=== PATIENT | male | born 1945 | race Caucasian/White ===

== ENCOUNTER 2018-09-27 10:08 | Inpatient (IN) ==
[2018-09-27] MEDS ORDERED: Ipratropium/Albuterol Neb 3 ML IH ONE (10:33)
[2018-09-27] MEDS ORDERED: 0.9 % Sodium Chloride 1,000 ML IVC ONE (10:33)
[2018-09-27] MEDS ORDERED: Acetaminophen 325 MG TABLET PO ONE (10:34)
[2018-09-27] MEDS ORDERED: methylPREDNISolone 125 MG/2 ML VIAL IM STA (10:35)
--- NOTE | 2018-09-27 10:38 | Emergency Department Note ---
Disposition Clinical Impression: Multifocal pneumonia COPD (chronic obstructive pulmonary disease) Qualifiers: COPD type: COPD with acute lower respiratory infection Qualified Code(s): J44.0 - Chronic obstructive pulmonary disease with acute lower respiratory infection Disposition: Admitted As Inpatient Condition: Fair Referrals: Chacha Rosenthal CNP [Primary Care Provider] - Forms: ED Satisfaction Letter SOB HPI - General Chief Complaint: ED Shortness of Breath/Dyspnea Stated Complaint: possible pneumonia Time Seen by Provider: 09/27/18 10:20 Source: patient Mode of arrival: private vehicle Limitations: no limitations Nursing Notes Reviewed: Yes Vital Signs Reviewed: Yes - History of Present Illness Patient presents to the ED with complaint of shortness of breath and cough with concern for possible pneumonia. He apparently saw his pain management doctor yesterday who thought he may have pneumonia and advised to come in for further evaluation. He reports symptoms started yesterday. Cough is been dry with occasional production of clear phlegm. He denies any nasal congestion but does report chronic clear rhinorrhea. No sore throat. Denies any fever or chills. Denies any chest pain but does report "lung pain" on the right side whenever he coughs. No nausea, vomiting, diarrhea or constipation. He wears 2-3 L of oxygen at home at all times due to his COPD but does continue to smoke 5-6 cigarettes per day. States he is not on any inhalers for his COPD and never has been because he cannot afford them. Denies any recent travel or sick contacts. Denies any leg swelling. Denies any cardiac history but does have diabetes, high blood pressure and high cholesterol. He has increased his oxygen level at home at 4 L without improvement. - Related Data Home Medications Medication Instructions Recorded Confirmed Gemfibrozil [Lopid] 600 mg PO BIDWM 02/18/15 09/27/18 Hydrochlorothiazide 25 mg PO DAILY 02/18/15 09/27/18 Lisinopril [Zestril] 20 mg PO DAILY 02/18/15 09/27/18 glipiZIDE [Glucotrol] 5 mg PO DAILY 02/18/15 09/27/18 metFORMIN [Glucophage] 1,000 mg PO BIDWM 02/18/15 09/27/18 Gabapentin [Neurontin] 800 mg PO QID PRN 04/27/15 09/27/18 Tizanidine HCl 4 mg PO TID PRN 07/19/16 03/20/19 OxyCODONE Immed Rel [Roxicodone 20 20 mg PO Q6H PRN 01/28/16 09/27/18 MG] Albuterol Sulfate 2.5 mg IH Q4HR 08/27/16 09/27/18 Aspirin 81 mg PO DAILY 08/27/16 09/27/18 Previous Rx's Medication Instructions Recorded Nicotine Patch [Nicoderm] 14 mg TD DAILY #30 patch.td24 05/06/17 predniSONE [PredniSONE] 10 mg PO DAILY #63 tablet 05/06/17 Sucralfate [Carafate] 1 gm PO 2-4XD #200 mls 02/10/18 Ondansetron ODT [Zofran ODT] 4 mg SL Q4HR PRN #10 tab.rapdis 04/05/18 Allergies Allergy/AdvReac Type Severity Reaction Status Date / Time No Known Allergies Allergy Verified 09/27/18 10:24 Constitutional: Denies: fever, chills, weakness, weight change Eyes: Denies: eye pain, eye discharge, vision change ENT ED: Denies: ear pain, throat pain, dental pain, hearing loss, epistaxis, congestion, dysphagia Cardiovascular: Denies: chest pain, palpitations, dyspnea on exertion, edema, syncope Respiratory: Reports: cough, dyspnea. Denies: wheezes, hemoptysis, stridor Gastrointestinal: Denies: abdominal pain, nausea, vomiting, diarrhea, constipation, hematemesis, melena, hematochezia Genitourinary: Denies: urgency, dysuria, frequency, hematuria Musculoskeletal: Denies: back pain, neck pain, arthralgia, myalgia Integumentary: Denies: rash, abrasion, lesions Neurological: Denies: headache, weakness, numbness, paresthesias, confusion, abnormal gait, vertigo Psychiatric: Denies: anxiety, depression, suicidal thoughts, homicidal thoughts, auditory hallucinations, visual hallucinations Endocrine: Denies: fatigue Hematological/Lymphatic: Denies: easy bleeding, easy bruising Allergic/Immunologic: Denies: facial swelling, urticaria Past Medical History - Past Medical History Medical history: Reports: arthritis, COPD, diabetes, hyperlipidemia, hypertension, venous stasis, other Psychiatric history: Reports: no psych history - Social History Smoking Status: Current every day smoker Smokeless Tobacco Status: No Alcohol use: Reports: none Drug use: Reports: none Physical Exam - General Limitations: no limitations General appearance: alert, in no apparent distress - Head Head exam: atraumatic, normocephalic, normal inspection - Eye Eye exam: Present: normal appearance, PERRL, EOMI - ENT ENT exam: normal exam, normal oropharynx, mucous membranes moist - Neck Neck exam: Present: normal inspection, full ROM, trachea midline - Chest Chest inspection: Present: normal inspection, symmetric chest wall rise - Respiratory Respiratory exam: Absent: respiratory distress - Expanded Respiratory Exam Location: rhonchi: Left, Right, Upper, Lower (scattered), decreased breath sounds: Left, Right, Upper, Lower - Cardiovascular Cardiovascular exam: Present: normal rhythm, tachycardia, normal heart sounds - Abdominal Exam Abdominal exam: Present: soft, Non-Tender, normal bowel sounds. Absent: tenderness, distention, guarding, rebound, rigidity - Extremities Exam Extremities exam: Present: normal inspection, full ROM. Absent: tenderness, pedal edema - Neurological Exam Neurological exam: Present: alert, oriented X3 - Psychiatric Psychiatric exam: Present: normal affect, normal mood - Skin Skin exam: Present: warm, dry, intact, normal color Course Course Narrative: Agent presents to the ED at 2 days of shortness of breath, cough and right-sided pleuritic chest pain. On arrival he is hypoxic on 4 L and tachycardic with a low-grade fever concerning for pneumonia versus influenza. Will check flu swab, chest x-ray and lab work. We will give IV fluids as well as Tylenol for fever in addition to a breathing treatment and steroids for his COPD. - Reevaluation(s) Reevaluation #1: Lab work shows a leukocytosis swelled is a mildly elevated lactic acid and a bump in his troponin all related likely to the multifocal pneumonia seen on chest x-ray. Patient will be started on antibiotics. IV fluids have Adin been initiated along with Tylenol. He is requested oxycodone for his chronic pain which will be given. Discussed with patient his pneumonia as well as COPD exacerbation and need for admission and he is in agreement. I then spoke to his primary care provider's office, Dr. Salazar who has agreed to accept the patient. Time: 12:20 Vital Signs Temperature 100.8 F H 09/27/18 10:19 Pulse Rate 121 03/20/19 10:19 Respiratory Rate 28 09/27/18 10:19 Blood Pressure 144/117 09/27/18 10:19 O2 Sat by Pulse Oximetry 89 09/27/18 10:19 Temperature 100.8 F H 09/27/18 10:19 Pulse Rate 107 09/27/18 12:00 Respiratory Rate 20 09/27/18 12:00 Blood Pressure 103/66 09/27/18 12:00 O2 Sat by Pulse Oximetry 90 09/27/18 12:00 Oxygen Delivery Oxygen Delivery Nasal Cannula Shortness of Breath/Dyspnea - Differential Diagnosis Likely: acute exacerbation of chronic obstructive airways disease, pneumonia (versus influenza) - Medical Records Medical records reviewed: Yes I reviewed the patient's medical records. - Lab Data Lab results reviewed: Yes I reviewed the patient's lab results. Result diagrams: 09/27/18 10:45 09/27/18 10:45 Lab Results 09/27/18 09/27/18 09/27/18 Range/Units 10:45 10:45 10:45 WBC 16.6 H (4.3-11.1) K/mcL RBC 5.26 (4.19-5.50) M/mcL Hgb 13.7 (12.9-16.9) g/dL Hct 43.7 (37.5-50.1) % MCV 83.1 (83.0-100.0) fL MCH 26.0 L (28.0-33.3) pg MCHC 31.4 L (31.6-35.5) g/dL RDW 18.3 H (11.5-14.5) % Plt Count 265 (140-400) K/mcL MPV 10.4 (9.4-12.4) fL Immature Gran % 0.7 (0-4) % Seg Neutrophils % 88.6 % Lymphocytes % 5.4 % Monocytes % 5.1 % Eosinophils % 0.0 % Basophils % 0.2 % Neutrophils # 14.7 H (1.6-8.9) K/mcL Lymphocytes # 0.9 (0.6-4.6) K/mcL Monocytes # 0.9 (0.0-1.3) K/mcL Eosinophils # 0.0 (0.0-0.6) K/mcL Basophils # 0.0 (0.0-0.2) K/mcL Sodium 134 L (136-145) mEq/L Potassium 3.9 (3.5-5.1) mEq/L Chloride 94 L (98-107) mEq/L Carbon Dioxide 29 (23-29) mEq/L BUN 27 H (8-23) mg/dL Creatinine 1.41 H (0.70-1.30) mg/dL Est GFR ( Amer) 60 (> 60) Est GFR (Non-Af Amer) 49 L (> 60) BUN/Creatinine Ratio 19 (6-26) Glucose 203 H (70-105) mg/dL Calculated Osmolality 289 (280-300) Lactic Acid 2.4 H (0.5-2.2) mmol/L Calcium 9.3 (8.6-10.3) mg/dL Troponin I 0.05 H* (< 0.04) ng/mL B-Natriuretic Peptide (Less than 100) pg/mL 09/27/18 Range/Units 10:45 WBC (4.3-11.1) K/mcL RBC (4.19-5.50) M/mcL Hgb (12.9-16.9) g/dL Hct (37.5-50.1) % MCV (83.0-100.0) fL MCH (28.0-33.3) pg MCHC (31.6-35.5) g/dL RDW (11.5-14.5) % Plt Count (140-400) K/mcL MPV (9.4-12.4) fL Immature Gran % (0-4) % Seg Neutrophils % % Lymphocytes % % Monocytes % % Eosinophils % % Basophils % % Neutrophils # (1.6-8.9) K/mcL Lymphocytes # (0.6-4.6) K/mcL Monocytes # (0.0-1.3) K/mcL Eosinophils # (0.0-0.6) K/mcL Basophils # (0.0-0.2) K/mcL Sodium (136-145) mEq/L Potassium (3.5-5.1) mEq/L Chloride (98-107) mEq/L Carbon Dioxide (23-29) mEq/L BUN (8-23) mg/dL Creatinine (0.70-1.30) mg/dL Est GFR ( Amer) (> 60) Est GFR (Non-Af Amer) (> 60) BUN/Creatinine Ratio (6-26) Glucose (70-105) mg/dL Calculated Osmolality (280-300) Lactic Acid (0.5-2.2) mmol/L Calcium (8.6-10.3) mg/dL Troponin I (< 0.04) ng/mL B-Natriuretic Peptide 115 H (Less than 100) pg/mL - Radiology Data Radiology results reviewed: Yes I reviewed the patient's radiology results. ITS Impressions Chest X-Ray 09/27/18 10:33 IMPRESSION: Multifocal pneumonia, primarily in the right lung. Radiographic follow-up to document resolution is recommended. D/ / Felix Jeronimo MD / Felix Jeronimo MD Interpreting Provider: Felix Jeronimo MD - EKG Data EKG attestation: Yes I reviewed and interpreted this EKG. EKG shows normal: Reports: sinus rhythm Rate: Reports: tachycardia Rhythm: Reports: NSR, PAC's [place]/QRS: Reports: normal P waves: Reports: LAE Interpretation: Reports: no acute changes, nonspecific ST-T wave changes
[2018-09-27 10:59] LABS: Basophils % 0.2 %; Hematocrit 43.7 % (37.5-50.1); Hemoglobin 13.7 g/dL (12.9-16.9); Immature Granulocytes % 0.7 % (0-4); Lymphocytes # 0.9 K/mcL (0.6-4.6); Lymphocytes % 5.4 %; Mean Corpuscular HGB Conc 31.4 g/dL (31.6-35.5); Mean Corpuscular Volume 83.1 fL (83.0-100.0); Mean Platelet Volume 10.4 fL (9.4-12.4); Monocytes # 0.9 K/mcL (0.0-1.3); Monocytes % 5.1 %; Neutrophils # 14.7 K/mcL (1.6-8.9); Platelet Count 265 K/mcL (140-400); Red Blood Count 5.26 M/mcL (4.19-5.50); Red Cell Distribution Width 18.3 % (11.5-14.5); Segmented Neutrophils % 88.6 %
[2018-09-27 11:16] LABS: Calcium 9.3 mg/dL (8.6-10.3); Potassium 3.9 mEq/L (3.5-5.1)
[2018-09-27 11:19] LABS: Troponin I 0.05 ng/mL (< 0.04)
[2018-09-27] MEDS ORDERED: cefTRIAXone 1,000 MG in 0.9 % Sodium Chloride Mini Bag 100 ML IVPB ONE (11:40)
[2018-09-27] MEDS ORDERED: Levofloxacin 750 MG/150 ML 750 MG/150 ML BAG IVPB ONE (11:40)
[2018-09-27] MEDS ORDERED: *HR* OxyCODONE Immed Rel 5 MG TABLET PO ONE (11:54)
[2018-09-27] MEDS ORDERED: Naloxone 0.4 MG/ML INJ IVP PRN ×2 (12:22→13:35)
[2018-09-27] MEDS ORDERED: 0.9 % Sodium Chloride 1,000 ML IVC SCH (12:30)
[2018-09-27] MEDS ORDERED: Ipratropium/Albuterol Neb 3 ML IH SCH ×2 (12:30→13:00)
[2018-09-27] MEDS ORDERED: Ipratropium Neb 0.5 MG NEBULIZER ONE ×2 (12:35→13:35)
[2018-09-27] MEDS ORDERED: Gabapentin 400 MG CAPSULE PO PRN (13:35)
[2018-09-27] MEDS ORDERED: Ondansetron ODT 4 MG TAB.RAPDIS SL PRN (13:35)
[2018-09-27] MEDS ORDERED: *HR* OxyCODONE Immed Rel 5 MG TABLET PO PRN (13:35)
[2018-09-27] MEDS ORDERED: tiZANidine 4 MG TABLET PO PRN (13:35)
[2018-09-27] MEDS: Albuterol 2.5 MG/3 ML NEBULIZER IH SCH ×2 (15:32→19:41)
[2018-09-27] MEDS: Ipratropium/Albuterol Neb 3 ML IH SCH ×2 (15:33→19:41)
[2018-09-27] MEDS ORDERED: *HR* Dextrose 50 % in Water (Syg) 50 ML SYRINGE IVP PRN (16:16)
[2018-09-27] MEDS ORDERED: Dextrose Gel 15 GM/37.5 ML TUBE PO PRN ×2 (16:16)
[2018-09-27] MEDS ORDERED: D5% in Water 1,000 ML IVC PRN (16:16)
[2018-09-27] MEDS: 0.9 % Sodium Chloride 1,000 ML IVC SCH (16:39)
[2018-09-27] MEDS: Insulin LISPRO 300 UNITS/3 ML VIAL SQ SCH ×2 (17:18→20:45)
[2018-09-27] MEDS: *HR* Metformin 500 MG TABLET PO SCH (17:19)
[2018-09-27] MEDS: *HR* OxyCODONE Immed Rel 5 MG TABLET PO PRN (18:06)
[2018-09-27] MEDS ORDERED: Sucralfate 1 GM TABLET PO SCH (21:00)
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
[2018-09-28] MEDS: *HR* OxyCODONE Immed Rel 5 MG TABLET PO PRN ×4 (00:09→18:48)
[2018-09-28] MEDS: Albuterol 2.5 MG/3 ML NEBULIZER IH SCH ×3 (00:10→08:00)
[2018-09-28] MEDS: Ipratropium/Albuterol Neb 3 ML IH SCH ×6 (00:10→21:26)
[2018-09-28] MEDS: 0.9 % Sodium Chloride 1,000 ML IVC SCH (00:27)
[2018-09-28 03:19] LABS: Acinetobacter baumannii by PCR Not Detected (Not Detect); Candida albicans by PCR Not Detected (Not Detect); Candida glabrata by PCR Not Detected (Not Detect); Candida krusei by PCR Not Detected (Not Detect); Candida parapsilosis by PCR Not Detected (Not Detect); Candida tropicalis by PCR Not Detected (Not Detect); Enterobacter cloacae Cmplx PCR Not Detected (Not Detect); Enterobacteriaceae by PCR Not Detected (Not Detect); Enterococcus by PCR Not Detected (Not Detect); Escherichia coli by PCR Not Detected (Not Detect); Klebsiella oxytoca by PCR Not Detected (Not Detect); Klebsiella pneumoniae by PCR Not Detected (Not Detect); Proteus by PCR Not Detected (Not Detect); Pseudomonas aeruginosa by PCR Not Detected (Not Detect); Serratia marcescens by PCR Not Detected (Not Detect); Staphylococcus aureus by PCR Not Detected (Not Detect); Staphylococcus by PCR Not Detected (Not Detect); Streptococcus agalactiae(B)PCR Not Detected (Not Detect); Streptococcus by PCR DETECTED (Not Detect); Streptococcus pneumoniae PCR DETECTED (Not Detect); Streptococcus pyogenes (A) PCR Not Detected (Not Detect); blaKPC Carbapenem-Resist Gene Not Detected (Not Detect); vanA/B Vancomycin-Resist Genes Not Detected (Not Detect)
[2018-09-28 06:02] LABS: Basophils % 0.1 %; Hematocrit 35.8 % (37.5-50.1); Hemoglobin 11.3 g/dL (12.9-16.9); Immature Granulocytes % 0.6 % (0-4); Lymphocytes # 0.6 K/mcL (0.6-4.6); Lymphocytes % 4.1 %; Mean Corpuscular HGB Conc 31.6 g/dL (31.6-35.5); Mean Corpuscular Hemoglobin 26.3 pg (28.0-33.3); Mean Corpuscular Volume 83.3 fL (83.0-100.0); Mean Platelet Volume 10.4 fL (9.4-12.4); Monocytes # 0.8 K/mcL (0.0-1.3); Monocytes % 5.8 %; Neutrophils # 12.7 K/mcL (1.6-8.9); Platelet Count 218 K/mcL (140-400); Red Cell Distribution Width 17.8 % (11.5-14.5); Segmented Neutrophils % 89.4 %
[2018-09-28 06:16] LABS: BUN/Creatinine Ratio 26 (6-26); Blood Urea Nitrogen 29 mg/dL (8-23); Calcium 8.6 mg/dL (8.6-10.3); Carbon Dioxide 27 mEq/L (23-29); Chloride 102 mEq/L (98-107); Potassium 3.3 mEq/L (3.5-5.1); Sodium 136 mEq/L (136-145); eGFR For Non-African Americans > 60 (> 60)
[2018-09-28] MEDS: *HR* Enoxaparin 40 MG/0.4 ML SYRINGE SQ SCH (06:17)
[2018-09-28 07:22] LABS: Glucose 316 mg/dL (70-105); Osmolality,Calculated 300 (280-300)
--- NOTE | 2018-09-28 08:34 | Internal Med Progress Note ---
Date of Encounter: 09/28/18 Time of Encounter: 08:29 - Assessment and plan (1) Pneumonia due to Streptococcus pneumoniae Current Visit: Yes Status: Acute Assessment and plan: Multifocal pneumonia and blood culture positive for Streptococcus pneumoniae. Fortunately, he is not having complications as he is afebrile, normotensive, oxygenation improving lactate level normalized after IV fluids and antibiotics started. We will continue with his current regimen of Levaquin, respiratory treatments, chronic oxygen supplement but now at 4 L. Echocardiogram has been ordered to evaluate for potential seeding for endocarditis. Overall he looks very good considering his diagnosis. Qualifiers: Laterality: bilateral Lung location: unspecified part of lung Qualified Code(s): J13 - Pneumonia due to Streptococcus pneumoniae (2) Bacteremia due to Streptococcus pneumoniae Current Visit: Yes Status: Acute Assessment and plan: Bacteremia found on blood cultures. Has already been on Levaquin and will continue. Clinically he has showed improvement. Echocardiogram has been ordered. (3) Multifocal pneumonia Current Visit: Yes Status: Acute Assessment and plan: As above. (4) Elevated lactic acid level Current Visit: Yes Status: Resolved Assessment and plan: Elevated lactic acid level resolved after IV hydration and antibiotics initiated. (5) DM (diabetes mellitus), type 2 Current Visit: Yes Status: Chronic Assessment and plan: Blood sugars are elevated in the 200-300 range, likely exacerbated with his intravenous steroids given yesterday. We are not continue the IV fluids currently. Sliding scale arranged. Overall glycohemoglobin has been good. Qualifiers: Diabetes mellitus exterminator insulin use: without half-way use Diabetes mellitus complication status: with neurologic complications Diabetes mellitus complication detail: with polyneuropathy Qualified Code(s): E11.42 - Type 2 diabetes mellitus with diabetic polyneuropathy (6) HTN (hypertension) Current Visit: Yes Status: Chronic Assessment and plan: Chronic history of hypertension. Blood pressure is well controlled. Continue same medication. Qualifiers: Hypertension type: essential hypertension Qualified Code(s): I10 - E ssential (primary) hypertension (7) SORAYA (acute kidney injury) Current Visit: Yes Status: Acute Assessment and plan: Acute kidney injury on admission in the ER, now after hydration has normalized. Will follow. Not requiring IV fluids. Taking by mouth well (8) Tachycardia Current Visit: Yes Status: Acute Assessment and plan: Intermittently he is having episodes of a supraventricular tachycardia. It is transient, sometimes in the 120s to 130s. Underlying rhythm appears to be normal sinus rhythm on morning EKG. He has no symptoms with this. This may be related to his current pulmonary infection and will continue monitoring. Cardiology consultation considered. Cardiovascular stable vitals. Echocardiogram has been ordered. Consideration for anticoagulation if this r esults in a persistent atrial fibrillation. (9) COPD (chronic obstructive pulmonary disease) Current Visit: Yes Status: Chronic Assessment and plan: Long-standing history of COPD now has an ammonia and increased oxygen requirements. He is up 4 L as opposed to 2 1/2 L at home. Continue respiratory treatments and oxygen. Qualifiers: COPD type: COPD with acute lower respiratory infection Qualified Code(s): J44.0 - Chronic obstructive pulmonary disease with acute lower respiratory infection (10) Hypokalemia Current Visit: Yes Status: Acute Assessment and plan: Mild hypokalemia, noted after rehydration from fluid boluses. Oral potassium today and follow-up arranged (11) DVT prophylaxis Current Visit: Yes Status: Acute Assessment and plan: Continue with Lovenox for DVT prophylaxis. - Subjective Interval history: Patient denies any cardiac type chest pain or palpitations. He is hungry for breakfast and wants an extra tray. He still has cough and congestion but is not having as much shortness of breath. He states he feels better today. He is not having the right sided pleuritic chest pain as he had coming into the emergency room. - Constitutional Vitals: Temp Pulse Resp BP Pulse Ox 97.8 F 89 18 130/63 93 09/28/18 07:18 09/28/18 07:18 09/28/18 07:18 09/28/18 07:18 09/28/18 07:18 General appearance: Present: A&O X 3, no acute distress, answers questions appropriately - Respiratory Additional comments: Diminished breath sounds with crackles and wheezes heard in the right middle lower lung field and a bit in the left base. Tactile fremitus in the right lung field. No respiratory distress. He is wearing his oxygen as he does chronically. Saturations are in the 90s at 4 L per nasal cannula. Occasional loose cough. - Cardiovascular Additional comments: Generally regular rate and rhythm with 1/6 systolic murmur at the left sternal border. Occasional ectopy on auscultation. Monitor shows typically normal sinu s rhythm with occasional PAC and unifocal PVC. Intermittently has supraventricular tachycardia with a heart rate to 120 range transiently. Morning EKG showed normal sinus rhythm without acute ischemic changes. Heart rate staying about 100 - Extremities Exam Extremities exam: Absent: calf tenderness, pedal edema, tenderness Internal Medicine: Result - Labs CBC & Chem 7: 09/28/18 05:45 09/28/18 05:45 Labs: Short CBC 09/27/18 09/28/18 Range/Units 10:45 05:45 WBC 16.6 H 14.2 H (4.3-11.1) K/mcL Hgb 13.7 11.3 L D (12.9-16.9) g/dL Hct 43.7 35.8 L (37.5-50.1) % Plt Count 265 218 (140-400) K/mcL Neutrophils # 14.7 H 12.7 H (1.6-8.9) K/mcL BMP 09/27/18 09/28/18 10:45 05:45 Sodium 134 L 136 Potassium 3.9 3.3 L Chloride 94 L 102 Carbon Dioxide 29 27 BUN 27 H 29 H Creatinine 1.41 H 1.10 Glucose 203 H 316 H Calcium 9.3 8.6 Cardiac Enzymes 09/27/18 09/27/18 09/27/18 Range/Units 10:45 16:23 21:45 Troponin I 0.05 H* 0.05 H* < 0.03 (< 0.04) ng/mL White blood cell count is much improved from 16,000 14,000. Hemoglobin slightly dropped after hydration. Potassium 3.3 down from 3.9. Acute kidney injury is now normalized. Blood sugar is elevated, he did receive steroids in the ER yesterday. Blood culture positive for Streptococcus pneumoniae - Prior EKG Data EKG comments: 09/28/18 08:42 This morning EKG shows normal sinus rhythm without acute ischemic change. Tel emetry monitor shows intermittent episodes of supraventricular tachycardia, occasional PAC and occasional unifocal PVCs. - Impressions Impressions Chest X-Ray 09/27/18 10:33 IMPRESSION: Multifocal pneumonia, primarily in the right lung. Radiographic follow-up to document resolution is recommended. D/ / Felix Jeronimo MD / Felix Jeronimo MD Interpreting Provider: Felix Jeronimo MD - VTE Reasons for not Prescribing Prophylaxis: Treatment not Indicated - Low risk for VTE Consult Discharge Plan - Plan Referrals: Chacha Rosenthal, REDUCTION PLANT SUPERVISOR [Primary Care Provider] -
[2018-09-28] MEDS ORDERED: Albuterol 2.5 MG/3 ML NEBULIZER IH PRN (08:53)
[2018-09-28] MEDS: Aspirin 81 MG TAB.CHEW PO SCH (08:56)
[2018-09-28] MEDS: Pregabalin 50 MG CAPSULE PO SCH ×3 (08:57→21:25)
[2018-09-28] MEDS: *HR* Metformin 500 MG TABLET PO SCH ×2 (08:57→16:50)
[2018-09-28] MEDS: *HR* GlipiZIDE 5 MG TABLET PO SCH (08:57)
[2018-09-28] MEDS: Lisinopril 20 MG TABLET PO SCH (08:57)
[2018-09-28] MEDS: Nicotine 14 MG PATCH.TD24 TD SCH (08:58)
[2018-09-28] MEDS: Insulin LISPRO 300 UNITS/3 ML VIAL SQ SCH ×4 (08:58→21:28)
[2018-09-28] MEDS ORDERED: hydroCHLOROthiazide 25 MG TABLET PO SCH (09:00)
[2018-09-28] MEDS ORDERED: predniSONE 10 MG TABLET PO SCH (09:00)
[2018-09-28] MEDS: Levofloxacin 500 MG/100 ML 500 MG/100 ML BAG IVPB SCH (12:13)
--- NOTE | 2018-09-28 20:11 | Electrocardiograph Report ---
[address] [address] Test Date: 2018-09-28 Pat Name: Eddie Gillis Department: 2001 Room: 112 Gender: M [place]: Yuli : 1945 Requested By: Dez Salazar Order Number: [id number] Reading MD: Corazon Negrete Measurements Intervals [place] Rate: 94 P: 56 SC: 183 QRS: 49 QRSD: 125 T: 55 QT: 366 QTc: 418 Interpretive Statements SINUS RHYTHM WITH OCCASIONAL VENTRICULAR PREMATURE COMPLEXES IVCD Electronically Signed On 09-28-2018 20:09:27 EDT by Corazon Negrete
--- NOTE | 2018-09-28 20:19 | Electrocardiograph Report ---
[place] [address] Test Date: 2018-09-27 Pat Name: Eddie Gillis Department: 2001 Room: 112 Gender: M Photo Offset Printer: : 1945 Requested By: Dez Salazar Order Number: [id number] Reading MD: Corazon Negrete Measurements Intervals [place] Rate: 111 P: [place]: 0 QRS: 56 QRSD: 117 T: 65 QT: 342 QTc: 407 Interpretive Statements Artifact limits interpretation Probably sinus rhythm with atrial ectopy Electronically Signed On 09-28-2018 20:17:21 EDT by Corazon Negrete
[2018-09-29] MEDS: *HR* OxyCODONE Immed Rel 5 MG TABLET PO PRN ×4 (00:42→19:01)
[2018-09-29] MEDS: Ipratropium/Albuterol Neb 3 ML IH SCH ×6 (00:44→18:37)
[2018-09-29 05:24] LABS: Basophils % 0.2 %; Eosinophils # 0.1 K/mcL (0.0-0.6); Eosinophils % 0.7 %; Hematocrit 36.3 % (37.5-50.1); Hemoglobin 11.2 g/dL (12.9-16.9); Immature Granulocytes % 0.7 % (0-4); Lymphocytes # 1.4 K/mcL (0.6-4.6); Lymphocytes % 11.2 %; Mean Corpuscular HGB Conc 30.9 g/dL (31.6-35.5); Mean Corpuscular Hemoglobin 25.9 pg (28.0-33.3); Mean Platelet Volume 10.8 fL (9.4-12.4); Monocytes # 0.8 K/mcL (0.0-1.3); Monocytes % 6.3 %; Neutrophils # 10.2 K/mcL (1.6-8.9); Nucleated Red Blood Cells 0.2 /100 WBC (0); Platelet Count 289 K/mcL (140-400); Red Blood Count 4.32 M/mcL (4.19-5.50); Red Cell Distribution Width 17.5 % (11.5-14.5); Segmented Neutrophils % 80.9 %
[2018-09-29 05:43] LABS: BUN/Creatinine Ratio 33 (6-26); Blood Urea Nitrogen 27 mg/dL (8-23); Calcium 8.8 mg/dL (8.6-10.3); Carbon Dioxide 29 mEq/L (23-29); Chloride 105 mEq/L (98-107); Glucose 82 mg/dL (70-105); Osmolality,Calculated 294 (280-300); Potassium 3.8 mEq/L (3.5-5.1); Sodium 140 mEq/L (136-145); eGFR For Non-African Americans > 60 (> 60)
[2018-09-29] MEDS: *HR* Enoxaparin 40 MG/0.4 ML SYRINGE SQ SCH (06:59)
--- NOTE | 2018-09-29 07:35 | Internal Med Progress Note ---
Date of Encounter: 09/29/18 Time of Encounter: 07:33 - Assessment and plan (1) Pneumonia due to Streptococcus pneumoniae Current Visit: Yes Status: Acute Assessment and plan: Rather extensive multifocal pneumonia due to Streptococcus pneumoniae and doing very well. He still requiring a bit more oxygen at 3-4 L compared to his baseline of 2-1/2 L at home. Follow-up chest x-ray ordered for today. He is not having any respiratory distress. Because of the bacteremia I would anticipate treating him intravenously for at least 5 days. Echocardiogram was done yesterday and results pending. Qualifiers: Laterality: bilateral Lung location: unspecified part of lung Qualified Code(s): J13 - Pneumonia due to Streptococcus pneumoniae (2) Bacteremia due to Streptococcus pneumoniae Current Visit: Yes Status: Acute Assessment and plan: He is doing remarkably well considering his bacteremia. White blood cell count normalizing. No fever. Echocardiogram was done yesterday and results pending. Anticipate treating him for at least 5 days intravenously. (3) Multifocal pneumonia Current Visit: Yes Status: Acute (4) Elevated lactic acid level Current Visit: Yes Status: Resolved (5) DM (diabetes mellitus), type 2 Current Visit: Yes Status: Chronic Assessment and plan: Blood pressures have been elevated due to a dose of steroids in the ER. There are now much improved. Continue same regimen. Qualifiers: Diabetes mellitus dedicated intermodal truck driver insulin use: without dedicated intermodal truck driver use Diabetes mellitus complication status: with neurologic complications Diabetes mellitus complication detail: with polyneuropathy Qualified Code(s): E11.42 - Type 2 diabetes mellitus with diabetic polyneuropathy (6) HTN (hypertension) Current Visit: Yes Status: Chronic Assessment and plan: Blood pressures are under good control. Stay on the same medication. Qualifiers: Hypertension type: essential hypertension Qualified Code(s): I10 - Essential (primary) hypertension (7) SORAYA (acute kidney injury) Current Visit: Yes Status: Resolved Assessment and plan: Acute kidney injury is resolved. Normal renal function now. (8) Tachycardia Current Visit: Yes Status: Acute Assessment and plan: Since admission he said episodes of supraventricular tachycardia which are transient and asymptomatic. He is currently in normal sinus rhythm with the rate in the 80s. Low-dose beta betty was started. EKG shows normal sinus rhythm. No malignant-appearing rhythms recorded. (9) COPD (chronic obstructive pulmonary disease) Current Visit: Yes Status: Chronic Assessment and plan: Chronic COPD and oxygen dependent chronically at 2 l. Requiring 3 L here. Overall doing well. Qualifiers: COPD type: COPD with acute lower respiratory infection Qualified Code(s): J44.0 - Chronic obstructive pulmonary disease with acute lower respiratory i nfection (10) Hypokalemia Current Visit: Yes Status: Resolved (11) DVT prophylaxis Current Visit: Yes Status: Acute - Subjective Interval history: Patient feels that he is improving. He denies a cardiac type chest pain or palpitations. He still has a little bit of sputum production but it is light. He denies any right sided pleuritic pain that he had previously. His appetite is great. His pain in his lower extremity which is chronic as well controlled with his usual hydrocodone 4 times per day. He states he feels much better. - Constitutional Vitals: Temp Pulse Resp BP Pulse Ox 97.8 F 81 19 113/57 92 09/29/18 03:17 09/29/18 03:17 09/29/18 03:17 09/29/18 03:17 09/29/18 03:17 General appearance: Present: A&O X 3, no acute distress, answers questions appropriately - Respiratory Additional comments: Diffuse crackles and congestion and fremitus on the right mid and lower lung field. Less so on the left base. Anteriorly has crackles and decreased breath sounds on the right side. No respiratory distress. No orthopnea. - Cardiovascular Cardiovascular exam: Present: RRR, +S1, +S2 Additional comments: Currently his pulse is in the 80s and regular. Monitor shows normal sinus rhythm. Yesterday he had some episodes of mild supraventricular tachycardia in the 100 120 range. - Extremities Exam Additional comments: Chronic hyperpigmentation indurated skin, previous trauma to the right lower extremity. No skin breakdown. No edema. Internal Medicine: Result - Labs CBC & Chem 7: 09/29/18 04:45 09/29/18 04:45 Labs: Short CBC 09/29/18 Range/Units 04:45 WBC 12.6 H (4.3-11.1) K/mcL Hgb 11.2 L (12.9-16.9) g/dL Hct 36.3 L (37.5-50.1) % Plt Count 289 (140-400) K/mcL Neutrophils # 10.2 H (1.6-8.9) K/mcL BMP 09/29/18 04:45 Sodium 140 Potassium 3.8 Chloride 105 Carbon Dioxide 29 BUN 27 H Creatinine 0.82 Glucose 82 Calcium 8.8 White blood cell count is normalizing. Hemoglobin stable. Renal function is now normal. - EKG Interpretation EKG Interpreted by Myself: Yes (residential monitor shows normal sinus rhythm and rate in the 80s) - Impressions Impressions Echocardiogram 09/28/18 00:33 Impressions: Technically sub-optimal due to poor echocardiographic windows. Parasternal views could not be obtained. LVEF 55-60%. Normal LV chamber size, wall thickness and function. Normal right ventricular structure and function. Mild left ventricular diastolic dysfunction. Unable to estimate RVSP due to lack of adequate TR. No significant valvular dysfunction. Findings: Study Quality * Technically sub-optimal due to poor echocardiographic windows. ECG Findings * Normal sinus rhythm. Left Ventricle * LVEF 55-60%. * Normal LV chamber size, wall thickness and function. * Mild left ventricular diastolic dysfunction. Right Ventricle * Normal right ventricular structure and function. Left Atrium * Normal left atrial size. Right Atrium * Normal right atrial size. Aortic Valve * Aortic valve not well visualized. * No aortic regurgitation. * No aortic stenosis. Mitral Valve * Normal mitral valve structure and function. * No mitral regurgitation. * No mitral stenosis. Tricuspid Valve * Normal tricuspid valve structure and function. * Trace tricuspid regurgitation. * Unable to estimate RVSP due to lack of adequate TR. Pulmonic Valve * Pulmonic valve not well visualized. Pericardium * The pericardium appears normal. IVC * Normal IVC dimensions and inspiratory collapse. Pulmonary Artery * Pulmonary artery not well visualized. Aorta * Not well visualized. - VTE Reasons for not Prescribing Prophylaxis: Treatment not Indicated - Low risk for VTE Consult Discharge Plan - Plan Referrals: Chacha Rosenthal, CELL SUPPORT OPERATOR [Primary Care Provider] -
--- NOTE | 2018-09-29 08:30 | Electrocardiograph Report ---
[address] [address] Test Date: 2018-09-27 Pat Name: Eddie Gillis Department: EDG1 Room: 112 Gender: M Hat Body Inspector: : 1945 Requested By: Trinity Brooks Order Number: [id number] Reading MD: Ag Garza Measurements Intervals [place] Rate: 123 P: 76 ND: 159 QRS: 66 QRSD: 100 T: 66 QT: 325 QTc: 465 Interpretive Statements Sinus tachycardia Atrial premature complex Left atrial enlargement Nonspecific ST-T changes Electronically Signed On 09-29-2018 8:28:31 EDT by Ag Garza
[2018-09-29] MEDS: Insulin LISPRO 300 UNITS/3 ML VIAL SQ SCH ×4 (08:31→21:31)
[2018-09-29] MEDS: Nicotine 14 MG PATCH.TD24 TD SCH (09:07)
[2018-09-29] MEDS: Pregabalin 50 MG CAPSULE PO SCH ×3 (09:22→21:30)
[2018-09-29] MEDS: Lisinopril 20 MG TABLET PO SCH (09:22)
[2018-09-29] MEDS: *HR* GlipiZIDE 5 MG TABLET PO SCH (09:22)
[2018-09-29] MEDS: Aspirin 81 MG TAB.CHEW PO SCH (09:22)
[2018-09-29] MEDS: *HR* Metformin 500 MG TABLET PO SCH ×2 (09:22→16:56)
[2018-09-29] MEDS: Levofloxacin 500 MG/100 ML 500 MG/100 ML BAG IVPB SCH (12:13)
--- NOTE | 2018-09-29 19:11 | Event Note ---
Date of Encounter: 09/29/18 Time of Encounter: 19:08 Reevaluating tonight: Patient states that he feels pretty good. He was wheeled down to the shower, took a shower and was wheeled back in the wheelchair. He has been out of bed somewhat in the room. He denies any cardiac chest pain he denies a major pulmonary symptoms. His right-sided chest pain is gone. The nurse reported that he had saturations dropping into the 80s so they had to bump up his oxygen to 5 L per nasal cannula and put on a continuous pulse oximeter. Has been in the 90s since then. Reexamination shows lungs with crackles and rhonchi and wheeze in the right mid lung field. Few crackles in the right anterior lobe. Heart shows regular rate and rhythm with 2/6 systolic murmur. monitoring analyst shows underlying normal sinus rhythm with episodes of supraventricular tachycardia to the 120s. Occasional PAC and PVC. No runs of V. tach noted on monitor. Follow-up chest x-ray shows partial clearing of the right lower lobe but worsening consolidation above the minor fissure. Likely the x-ray is lacking behind his clinical improvement. With his history of Streptococcus pneumonia bacteremia from his pneumonia he should continue the IV antibiotics.
[2018-09-30] MEDS: *HR* OxyCODONE Immed Rel 5 MG TABLET PO PRN ×2 (00:03→08:07)
[2018-09-30] MEDS: Ipratropium/Albuterol Neb 3 ML IH SCH ×6 (00:04→20:09)
[2018-09-30] MEDS: *HR* Enoxaparin 40 MG/0.4 ML SYRINGE SQ SCH (05:05)
[2018-09-30 05:58] LABS: Basophils % 0.2 %; Eosinophils # 0.2 K/mcL (0.0-0.6); Eosinophils % 1.2 %; Hematocrit 37.8 % (37.5-50.1); Hemoglobin 11.4 g/dL (12.9-16.9); Immature Granulocytes % 2.3 % (0-4); Lymphocytes # 1.3 K/mcL (0.6-4.6); Lymphocytes % 9.7 %; Mean Corpuscular HGB Conc 30.2 g/dL (31.6-35.5); Mean Corpuscular Hemoglobin 25.9 pg (28.0-33.3); Mean Corpuscular Volume 85.9 fL (83.0-100.0); Monocytes # 1.1 K/mcL (0.0-1.3); Monocytes % 7.8 %; Neutrophils # 10.9 K/mcL (1.6-8.9); Nucleated Red Blood Cells 0.1 /100 WBC (0); Platelet Count 291 K/mcL (140-400); Red Cell Distribution Width 17.5 % (11.5-14.5); Segmented Neutrophils % 78.8 %
[2018-09-30 06:13] LABS: BUN/Creatinine Ratio 26 (6-26); Blood Urea Nitrogen 21 mg/dL (8-23); Calcium 8.7 mg/dL (8.6-10.3); Carbon Dioxide 31 mEq/L (23-29); Chloride 101 mEq/L (98-107); Glucose 146 mg/dL (70-105); Osmolality,Calculated 292 (280-300); Sodium 138 mEq/L (136-145); eGFR For Non-African Americans > 60 (> 60)
[2018-09-30] MEDS: Insulin LISPRO 300 UNITS/3 ML VIAL SQ SCH ×4 (08:13→20:39)
[2018-09-30] MEDS: Aspirin 81 MG TAB.CHEW PO SCH (09:13)
[2018-09-30] MEDS: Pregabalin 50 MG CAPSULE PO SCH ×3 (09:13→20:03)
[2018-09-30] MEDS: *HR* GlipiZIDE 5 MG TABLET PO SCH (09:13)
[2018-09-30] MEDS: *HR* Metformin 500 MG TABLET PO SCH ×2 (09:13→16:43)
[2018-09-30] MEDS: Lisinopril 20 MG TABLET PO SCH (09:13)
[2018-09-30] MEDS: Nicotine 14 MG PATCH.TD24 TD SCH (09:16)
[2018-09-30] MEDS: Levofloxacin 500 MG/100 ML 500 MG/100 ML BAG IVPB SCH (12:01)
--- NOTE | 2018-09-30 15:46 | Internal Med Progress Note ---
Date of Encounter: 09/30/18 Time of Encounter: 15:20 - Assessment and plan (1) Bacteremia due to Streptococcus pneumoniae Current Visit: Yes Status: Acute Assessment and plan: He is doing remarkably well considering his bacteremia. Echocardiogram done during this admission showed no vegetation. Anticipate treating him for at least 5 days with intravenous antibiotics. Will repeat blood cultures. (2) Multifocal pneumonia Current Visit: Yes Status: Acute Assessment and plan: IV antibiotics. Repeat blood cultures given bacteremia. (3) Pneumonia due to Streptococcus pneumoniae Current Visit: Yes Status: Acute Assessment and plan: Rather extensive multifocal pneumonia due to Streptococcus pneumoniae and doing overall well. Requiring 5LNC at this time compared to his baseline of 2-1/2 L at home, but clinically stable. He is not having any respiratory distress. Because of the bacteremia I would anticipate treating him intravenously for at least 5 days. Qualifiers: Laterality: bilateral Lung location: unspecified part of lung Qualified Code(s): J13 - Pneumonia due to Streptococcus pneumoniae (4) Tachycardia Current Visit: Yes Status: Acute Assessment and plan: CTM. (5) COPD (chronic obstructive pulmonary disease) Current Visit: Yes Status: Chronic Assessment and plan: Chronic COPD and oxygen dependent chronically at 2 l. Requiring 5L here due to PNA. Overall doing well. Qualifiers: COPD type: COPD with acute lower respiratory infection Qualified Code(s): J44.0 - Chronic obstructive pulmonary disease with acute lower respiratory infection (6) DM (diabetes mellitus), type 2 Current Visit: Yes Status: Chronic Assessment and plan: Continue current regimen, christine adjust insulin as appropriate. Qualifiers: Diabetes mellitus terminal worker insulin use: without intermediate use Diabetes mellitus complication status: with neurologic complications Diabetes mellitus complication detail: with polyneuropathy Qualified Code(s): E11.42 - Type 2 diabetes mellitus with diabetic polyneuropathy (7) HTN (hypertension) Current Visit: Yes Status: Chronic Assessment and plan: Continue current regimen. Qualifiers: Hypertension type: essential hypertension Qualified Code(s): I10 - Essential (primary) hypertension - Time Spent With Patient less than 15 minutes - Subjective Interval history: Breathing "okay." No particular concern. Nursing staff noted the patient was dr mary over the past 24 hours overall, but better after home oxycodone was decreased. - Constitutional Vitals: Temp Pulse Resp BP Pulse Ox 98 F 93 19 128/65 91 09/30/18 13:01 09/30/18 13:01 09/30/18 15:21 09/30/18 13:01 09/30/18 15:21 General appearance: Present: A&O X 3, no acute distress, answers questions appropriately Exam: Gen: A&Ox3, NAD. HEENT: NCAT. Neck: No palpable lymphadenopathy or thyromegaly. CV: RRR, S1S2. No murmur. Capillary refill < 2 seconds. Pulm: On 5LNC. Diminished air exchange with bibasilar crackles, L > R. Abd: (+)BS. NDNT. Neuro: Non-focal. Skin: No rash. Ext: No pitting edema. Internal Medicine: Result - Labs CBC & Chem 7: 09/30/18 05:50 09/30/18 05:50 Labs: Short CBC 09/30/18 Range/Units 05:50 WBC 13.8 H (4.3-11.1) K/mcL Hgb 11.4 L (12.9-16.9) g/dL Hct 37.8 (37.5-50.1) % Plt Count 291 (140-400) K/mcL Neutrophils # 10.9 H (1.6-8.9) K/mcL BMP 09/30/18 05:50 Sodium 138 Potassium 4.0 Chloride 101 Carbon Dioxide 31 H BUN 21 Creatinine 0.82 Glucose 146 H Calcium 8.7 - VTE Reasons for not Prescribing Prophylaxis: Treatment not Indicated - Low risk for VTE Consult Discharge Plan - Plan Referrals: Chacha Rosenthal, NOVELTY PRINTING MACHINE OPERATOR [Primary Care Provider] -
[2018-10-01] MEDS: Ipratropium/Albuterol Neb 3 ML IH SCH ×6 (00:11→21:16)
[2018-10-01] MEDS: *HR* OxyCODONE Immed Rel 5 MG TABLET PO PRN ×4 (00:28→18:59)
[2018-10-01] MEDS: *HR* Enoxaparin 40 MG/0.4 ML SYRINGE SQ SCH (05:15)
[2018-10-01] MEDS: Pregabalin 50 MG CAPSULE PO SCH ×3 (07:54→21:16)
[2018-10-01] MEDS: Nicotine 14 MG PATCH.TD24 TD SCH (07:54)
[2018-10-01] MEDS: Aspirin 81 MG TAB.CHEW PO SCH (07:55)
[2018-10-01] MEDS: *HR* GlipiZIDE 5 MG TABLET PO SCH (07:55)
[2018-10-01] MEDS: Lisinopril 20 MG TABLET PO SCH (07:55)
[2018-10-01] MEDS: Insulin LISPRO 300 UNITS/3 ML VIAL SQ SCH ×4 (07:55→20:18)
[2018-10-01] MEDS: *HR* Metformin 500 MG TABLET PO SCH ×2 (07:55→16:42)
[2018-10-01] MEDS: Levofloxacin 500 MG/100 ML 500 MG/100 ML BAG IVPB SCH (12:40)
--- NOTE | 2018-10-01 13:44 | Internal Med Progress Note ---
Date of Encounter: 10/01/18 Time of Encounter: 13:20 - Assessment and plan (1) Bacteremia due to Streptococcus pneumoniae Current Visit: Yes Status: Acute Assessment and plan: He is doing remarkably well considering his bacteremia. Echocardiogram done during this admission showed no vegetation. Anticipate treating him for at least 5 days with intravenous antibiotics. Repeat blood cultures NGTD. (2) Multifocal pneumonia Current Visit: Yes Status: Acute Assessment and plan: IV antibiotics. Repeat blood cultures NGTD. (3) Pneumonia due to Streptococcus pneumoniae Current Visit: Yes Status: Acute Assessment and plan: Rather extensive multifocal pneumonia due to Streptococcus pneumoniae and doing overall well. Requiring 5LNC at this time compared to his baseline of 2-1/2 L at home, but clinically stable. He is not having any respiratory distress. Because of the bacteremia I would anticipate treating him intravenously for at l east 5 days. Qualifiers: Laterality: bilateral Lung location: unspecified part of lung Qualified Code(s): J13 - Pneumonia due to Streptococcus pneumoniae (4) Tachycardia Current Visit: Yes Status: Acute Assessment and plan: CTM. (5) COPD (chronic obstructive pulmonary disease) Current Visit: Yes Status: Chronic Assessment and plan: Chronic COPD and oxygen dependent chronically at 2 l. Requiring 5L here due to PNA. Overall doing well. Qualifiers: COPD type: COPD with acute lower respiratory infection Qualified Code(s): J44.0 - Chronic obstructive pulmonary disease with acute lower respiratory infection (6) DM (diabetes mellitus), type 2 Current Visit: Yes Status: Chronic Assessment and plan: Continue current regimen, will adjust insulin as appropriate. Qualifiers: Diabetes mellitus long winder tender insulin use: without long winder tender use Diabetes mellitus complication status: with neurologic complications Diabetes mellitus complication detail: with polyneuropathy Qualified Code(s): E11.42 - Type 2 diabetes mellitus with diabetic polyneuropathy (7) HTN (hypertension) Current Visit: Yes Status: Chronic Assessment and plan: Continue current regimen. Qualifiers: Hypertension type: essential hypertension Qualified Code(s): I10 - Essential (primary) hypertension - Time Spent With Patient less than 15 minutes - Subjective Interval history: Breathing "okay." No particular concern. - Constitutional Vitals: Temp Pulse Resp BP Pulse Ox 98.0 F 94 18 137/81 90 10/01/18 11:00 10/01/18 11:00 10/01/18 11:00 10/01/18 11:00 10/01/18 11:00 General appearance: Present: A&O X 3, no acute distress, answers questions appropriately Exam: Gen: A&Ox3, NAD. HEENT: NCAT. Neck: No palpable lymphadenopathy or thyromegaly. CV: RRR, S1S2. No murmur. Capillary refill < 2 seconds. Pulm: On 5LNC. Diminished air exchange with bibasilar crackles, L > R. Abd: (+)BS. NDNT. Neuro: Non-focal. Skin: No rash. Ext: No pitting edema. Internal Medicine: Result - Labs CBC & Chem 7: 09/30/18 05:50 09/30/18 05:50 - VTE Reasons for not Prescribing Prophylaxis: Treatment not Indicated - Low risk for VTE Consult Discharge Plan - Plan Referrals: Chacha Rosenthal, WIRE STITCHER [Primary Care Provider] -
[2018-10-01 23:38] LABS: Bilirubin,Urine Negative (Negative); Blood,Urine Negative (Negative); Clarity,Urine Clear (Clear); Color,Urine Yellow (Yellow); Glucose,Urine (UA) Normal (Normal); Ketones,Urine Negative (Negative); Leukocyte Esterase,Urine Negative (Negative); Nitrite,Urine Negative (Negative); PH,Urine 6.5 pH Units (5.0-8.0); Protein,Urine 100 mg/dL (Neg-Trace); Specific Gravity,Urine 1.025 (1.010-1.025); Urobilinogen,Urine Normal (Normal)
[2018-10-01 23:46] LABS: Bacteria,Urine Few per hpf (None-Few); Squamous Epithelial Cell,Urine Few per lpf (None-Few); WBC,Urine 0-3 per hpf (0-3)
[2018-10-01 23:47] LABS: RBC,Urine 0-3 per hpf (0-3)
[2018-10-02] MEDS: Ipratropium/Albuterol Neb 3 ML IH SCH ×6 (01:15→20:34)
[2018-10-02] MEDS: *HR* OxyCODONE Immed Rel 5 MG TABLET PO PRN ×4 (01:28→20:01)
[2018-10-02] MEDS: *HR* Enoxaparin 40 MG/0.4 ML SYRINGE SQ SCH (05:00)
--- NOTE | 2018-10-02 07:09 | Internal Med Progress Note ---
Date of Encounter: 10/02/18 Time of Encounter: 07:07 - Assessment and plan (1) Pneumonia due to Streptococcus pneumoniae Current Visit: Yes Status: Acute Assessment and plan: This is his sixth day of inpatient stay and IV antibiotics. Concern today is increased oxygen requirements a 5-6 L per high flow nasal cannula to maintain saturations and 89 or 90% range. Follow-up chest x-ray ordered. Continue current treatment plan and try to taper his oxygen requirements as tolerated. Qualifiers: Laterality: bilateral Lung location: unspecified part of lung Qualified Code(s): J13 - Pneumonia due to Streptococcus pneumoniae (2) Bacteremia due to Streptococcus pneumoniae Current Visit: Yes Status: Acute Assessment and plan: Sixth day of IV antibiotics to help cover the Streptococcus pneumoniae a bacteremia. No fevers or chills. No septicemia signs or symptoms. Follow-up lab work for the morning. His white blood cell count was still elevated this weekend. (3) Multifocal pneumonia Current Visit: Yes Status: Acute Assessment and plan: Follow-up chest x-ray ordered. (4) Elevated lactic acid level Current Visit: Yes Status: Resolved (5) DM (diabetes mellitus), type 2 Current Visit: Yes Status: Chronic Assessment and plan: Sugars are under reasonable control despite his infection and his dose of IV steroids on admission. Qualifiers: Diabetes mellitus oil heaterman insulin use: without oil heaterman use Diabetes mellitus complication status: with neurologic complications Diabetes mellitus complication detail: with polyneuropathy Qualified Code(s): E11.42 - Type 2 diabetes mellitus with diabetic polyneuropathy (6) HTN (hypertension) Current Visit: Yes Status: Chronic Qualifiers: Hypertension type: essential hypertension Qualified Code(s): I10 - Essential (primary) hypertension (7) SORAYA (acute kidney injury) Current Visit: Yes Status: Resolved Assessment and plan: Follow-up lab work for tomorrow. (8) Tachycardia Current Visit: Yes Status: Acute Assessment and plan: Tachycardia appears to be resolved with his low-dose beta betty. (9) COPD (chronic obstructive pulmonary disease) Current Visit: Yes Status: Chronic Assessment and plan: Increased oxygen requirements last night and this morning. We will see how he does today. We will try to taper/wean as appropriate Qualifiers: COPD type: COPD with acute lower respiratory infection Qualified Code(s): J44.0 - Chronic obstructive pulmonary disease with acute lower respiratory infection (10) Hypokalemia Current Visit: Yes Status: Resolved (11) DVT prophylaxis Current Visit: Yes Status: Acute - Subjective Interval history: Patient states that he rested well last night. He denies any cardiac type chest pain or palpitations or tachycardia symptoms. He thinks his breathing is better. He has very little sputum production. Did not need breathing treatment in the middle of the night last night. Nurses report that his oxygen saturations were below 90% and he is now on 5 or 6 L per high flow nasal cannula. His monitor is showing normal sinus rhythm with occasional PAC and saturation of 89%. He is not having tachycardia episodes as he had previously. There is one documented run of 4 beat kailyn of PVCs this weekend. - Constitutional Vitals: Temp Pulse Resp BP Pulse Ox 98.7 F 68 18 130/78 89 10/02/18 03:19 10/02/18 03:19 10/02/18 03:19 10/02/18 03:19 10/02/18 07:00 General appearance: Present: A&O X 3, no acute distress, answers questions appropriately - Respiratory Additional comments: Crackles heard in the right middle lower lung and left base. No fremitus noted today. No respiratory distress. No orthopnea. No wheezing. - Cardiovascular Cardiovascular exam: Present: RRR, +S1, +S2 Additional comments: Occasional ectopic beat a PAC or PVC. This weekend had kailyn of 4 beat PVCs on one occasion. - Extremities Exam Extremities exam: Absent: pedal edema Internal Medicine: Result - Labs CBC & Chem 7: 09/30/18 05:50 09/30/18 05:50 Labs: Urine 10/01/18 Range/Units 16:00 Urine Color Yellow (Yellow) Urine Clarity Clear (Clear) Urine pH 6.5 (5.0-8.0) pH Units Ur Specific [place] 1.025 (1.010-1.025) Urine Protein 100 H (Neg-Trace) mg/dL Urine Glucose (UA) Normal (Normal) mg/dL Labs from the weekend have been reviewed. - VTE Reasons for not Prescribing Prophylaxis: Treatment not Indicated - Low risk for VTE Consult Discharge Plan - Plan Referrals: Chacha Rosenthal, OFFICE TECHNOLOGIST [Primary Care Provider] -
[2018-10-02] MEDS: *HR* Metformin 500 MG TABLET PO SCH ×2 (07:54→16:43)
[2018-10-02] MEDS: Lisinopril 20 MG TABLET PO SCH (07:54)
[2018-10-02] MEDS: Pregabalin 50 MG CAPSULE PO SCH ×3 (07:54→20:01)
[2018-10-02] MEDS: *HR* GlipiZIDE 5 MG TABLET PO SCH (07:55)
[2018-10-02] MEDS: Nicotine 14 MG PATCH.TD24 TD SCH (07:55)
[2018-10-02] MEDS: Aspirin 81 MG TAB.CHEW PO SCH (07:55)
[2018-10-02] MEDS: Insulin LISPRO 300 UNITS/3 ML VIAL SQ SCH ×4 (07:56→21:34)
[2018-10-02] MEDS: Levofloxacin 500 MG/100 ML 500 MG/100 ML BAG IVPB SCH (11:34)
[2018-10-02] MEDS ORDERED: Isovue-370 500 ML BOTTLE IVP ONE (19:18)
--- NOTE | 2018-10-02 19:20 | Event Note ---
Date of Encounter: 10/02/18 Time of Encounter: 19:20 I rechecked patient this evening. He is still requiring increased oxygen supplementation. He had right-sided chest pain earlier this evening, seemed to be pleuritic at all and when he took a deep breath or cough.If his sputum production. His lungs showed crackles in the right middle lower lung field. No respiratory distress. Heart generally regular rate and rhythm occasional ectopy. Continue the current regimen for his pneumonia. Clinically and symptomatically improving though his chest x-ray is liking.
[2018-10-03] MEDS: *HR* OxyCODONE Immed Rel 5 MG TABLET PO PRN ×4 (02:46→21:07)
[2018-10-03] MEDS: Ipratropium/Albuterol Neb 3 ML IH SCH ×6 (02:46→19:53)
[2018-10-03] MEDS: *HR* Enoxaparin 40 MG/0.4 ML SYRINGE SQ SCH (06:02)
[2018-10-03 06:14] LABS: Basophils # 0.1 K/mcL (0.0-0.2); Basophils % 0.5 %; Eosinophils # 0.3 K/mcL (0.0-0.6); Eosinophils % 3.2 %; Hematocrit 37.8 % (37.5-50.1); Hemoglobin 11.7 g/dL (12.9-16.9); Immature Granulocytes % 3.7 % (0-4); Lymphocytes # 1.8 K/mcL (0.6-4.6); Lymphocytes % 17.3 %; Mean Corpuscular Hemoglobin 25.9 pg (28.0-33.3); Mean Corpuscular Volume 83.6 fL (83.0-100.0); Mean Platelet Volume 9.4 fL (9.4-12.4); Monocytes # 0.6 K/mcL (0.0-1.3); Monocytes % 5.8 %; Neutrophils # 7.3 K/mcL (1.6-8.9); Platelet Count 374 K/mcL (140-400); Red Blood Count 4.52 M/mcL (4.19-5.50); Red Cell Distribution Width 17.5 % (11.5-14.5); Segmented Neutrophils % 69.5 %
[2018-10-03 06:30] LABS: BUN/Creatinine Ratio 22 (6-26); Blood Urea Nitrogen 15 mg/dL (8-23); Calcium 9.1 mg/dL (8.6-10.3); Carbon Dioxide 33 mEq/L (23-29); Chloride 96 mEq/L (98-107); Potassium 3.7 mEq/L (3.5-5.1); Sodium 136 mEq/L (136-145); eGFR For Non-African Americans > 60 (> 60)
[2018-10-03 06:51] LABS: Glucose 131 mg/dL (70-105); Osmolality,Calculated 285 (280-300)
[2018-10-03] MEDS: Nicotine 14 MG PATCH.TD24 TD SCH (07:53)
[2018-10-03] MEDS: Insulin LISPRO 300 UNITS/3 ML VIAL SQ SCH ×4 (07:53→21:06)
[2018-10-03] MEDS: Pregabalin 50 MG CAPSULE PO SCH ×3 (08:03→21:06)
[2018-10-03] MEDS: Aspirin 81 MG TAB.CHEW PO SCH (08:04)
[2018-10-03] MEDS: Lisinopril 20 MG TABLET PO SCH (08:04)
[2018-10-03] MEDS: *HR* GlipiZIDE 5 MG TABLET PO SCH (08:04)
--- NOTE | 2018-10-03 10:55 | Internal Med Progress Note ---
Date of Encounter: 10/03/18 Time of Encounter: 10:52 - Assessment and plan (1) Pneumonia due to Streptococcus pneumoniae Current Visit: Yes Status: Acute Assessment and plan: Pneumonia with bacteremia. Chest CT failed to show any obstructive lesion or abscess or complication as to why the chest film is not showing significant improvement. Clinically however he is improving other than his oxygen requirements. We will continue to try to taper the oxygen. Currently requiring high flow oxygen 5 L. When were able to taper him down to his home use he should be ready for discharge. Qualifiers: Laterality: bilateral Lung location: unspecified part of lung Qualified Code(s): J13 - Pneumonia due to Streptococcus pneumoniae (2) Bacteremia due to Streptococcus pneumoniae Current Visit: Yes Status: Acute Assessment and plan: Continues with IV antibiotics for his bacteremia. Afebrile. White blood cell count normal. Follow-up blood culture negative so far. (3) Multifocal pneumonia Current Visit: Yes Status: Acute (4) Elevated lactic acid level Current Visit: Yes Status: Resolved (5) DM (diabetes mellitus), type 2 Current Visit: Yes Status: Chronic Assessment and plan: Sugars under reasonable control. Qualifiers: Diabetes mellitus alf insulin use: without long chain beamer use Diabetes mellitus complication status: with neurologic complications Diabetes mellitus complication detail: with polyneuropathy Qualified Code(s): E11.42 - Type 2 diabetes mellitus with diabetic polyneuropathy (6) HTN (hypertension) Current Visit: Yes Status: Chronic Qualifiers: Hypertension type: essential hypertension Qualified Code(s): I10 - Essential (primary) hypertension (7) SORAYA (acute kidney injury) Current Visit: Yes Status: Resolved Assessment and plan: Renal function is good. (8) Tachycardia Current Visit: Yes Status: Acute (9) COPD (chronic obstructive pulmonary disease) Current Visit: Yes Status: Chronic Assessment and plan: See requiring extra oxygen at 5 L high flow. Taper as tolerated. Qualifiers: COPD type: COPD with acute lower respiratory infection Qualified Code(s): J44.0 - Chronic obstructive pulmonary disease with acute lower respiratory infection (10) Hypokalemia Current Visit: Yes Status: Resolved (11) DVT prophylaxis Current Visit: Yes Status: Acute - Subjective Interval history: He states that he feels better today. Less sputum production. Less shortness of breath. Eating well. Has only occasional right sided pleuritic type chest pain with deep respiration or cough. No cardiac symptoms. Nurses report that he will desat down to the 60s when ambulatory. Currently in the mid 90s at 5 L per high flow nasal cannula. Patient states that he does not check his saturations with ambulatory at home. He chronically uses 2 and half to 3 L. - Constitutional Vitals: Temp Pulse Resp BP Pulse Ox 98.7 F 56 16 146/85 93 10/03/18 07:32 10/03/18 07:32 10/03/18 07:32 10/03/18 07:32 10/03/18 09:21 General appearance: Present: A&O X 3, no acute distress, answers questions appropriately - Respiratory Additional comments: Localizing crackles in the right midlung area. Slight intermittent scattered end expiratory wheezes but more rare. - Cardiovascular Cardiovascular exam: Present: RRR, +S1, +S2, systolic murmur (2/6 systolic murmur) - Extremities Exam Extremities exam: Absent: pedal edema Internal Medicine: Result - Labs CBC & Chem 7: 10/03/18 06:05 10/03/18 06:05 Labs: Short CBC 10/03/18 Range/Units 06:05 WBC 10.5 (4.3-11.1) K/mcL Hgb 11.7 L (12.9-16.9) g/dL Hct 37.8 (37.5-50.1) % Plt Count 374 (140-400) K/mcL Neutrophils # 7.3 (1.6-8.9) K/mcL BMP 10/03/18 06:05 Sodium 136 Potassium 3.7 Chloride 96 L Carbon Dioxide 33 H BUN 15 Creatinine 0.67 L Glucose 131 H Calcium 9.1 Labs have been reviewed and are stable. - Impressions Impressions Chest CT 10/02/18 19:18 IMPRESSION: 1. Right lung consolidation concerning for pneumonia, possibly due to aspiration. 2. No obstructing airway lesion. 3. Abdominal aortic aneurysm. RECOMMENDATIONS: Recommend follow-up to resolution of lung consolidation. Managing Abdominal Aortic Aneurysms 2.6-2.9 cm: Every 5 years* 3.0-3.4 cm: Every 3 years. 3.5-3.9 cm: Every 1 year. 4.0-4.4 cm: Every 1 year. Recommend vascular consultation. 4.5-5.4 cm: Every 6 months. Recommend vascular consultation. Greater than or equal to 5.5 cm: Referral to vascular surgeon. *For abdominal aortas with maximum diameter of 2.6-2.9 cm meeting criteria for AAA (>50% of proximal normal segment). Reference: J Vasc Surg. 2009 Apr;50(4 Suppl):S2-49 D/ / 10/02/2018 22:16:30 Patricio Rizo MD / [facility] Interpreting Provider: Patricio Rizo MD - Diagnostic Studies CT scan - chest Additional comments: CT of chest failed to show any obstruction or abscess. Consistent with infiltrative pneumonia. He has known aortic aneurysm now 4.9 cm. No symptoms. - VTE Reasons for not Prescribing Prophylaxis: Treatment not Indicated - Low risk for VTE Consult Discharge Plan - Plan Referrals: Chacha Rosenthal, WHIPPED TOPPING MIXER [Primary Care Provider] -
[2018-10-03] MEDS: Levofloxacin 500 MG/100 ML 500 MG/100 ML BAG IVPB SCH (12:07)
--- NOTE | 2018-10-03 18:21 | Event Note ---
Date of Encounter: 10/03/18 Time of Encounter: 18:20 Patient was reevaluated. He said that he walked in the hallways and felt much better. His lungs show small amount of crackles right mid lung field. Heart underlying regular rate with occasional ectopy. No orthopnea. Trying to wean oxygen further and will try to plan for discharge tomorrow if able to do so
--- NOTE | 2018-10-03 22:31 | Discharge Summary ---
- NOTES TO OUTPATIENT PROVIDER Notes to Outpatient Provider: 1. Patient was admitted with bilateral pneumonia, worse on the right side. Was treated with Levaquin. He was found to be bacteremic with strep pneumoniae. He underwent at least a week's worth of Levaquin intravenously. Clinically and symptomatically he improved. However his chest x-ray showed continued right infiltrate above the minor fissure. CT scan failed to show any obstructive lesion abscess or complication. He will need a follow-up chest x-ray at a later date. He chronically uses oxygen at home Date of Encounter: 10/04/18 Time of Encounter: 10:21 - Discharge Diagnosis (1) Pneumonia due to Streptococcus pneumoniae Priority: Primary Status: Acute Comments: Patient was admitted to [facility] via the ER with a history of right sided pleuritic type chest pain. He is found to have bilateral pneumonia, worse on the right side. Blood cultures were positive for Streptococcus pneumoniae and patient con tinued the Levaquin that was started on admission through at least 7 days of intravenous therapy. His white blood cell count normalized. Symptomatically and clinically he improved. His chest film continue to show infiltrate in the right side above the minor fissure. CT scan failed to show any obstructive lesion abscess or complication. He will need a follow-up chest x-ray later to confirm total clearing. Qualifiers: Laterality: bilateral Lung location: unspecified part of lung Qualified Code(s): J13 - Pneumonia due to Streptococcus pneumoniae (2) Bacteremia due to Streptococcus pneumoniae Priority: Secondary Status: Acute Comments: Patient was admitted with pneumonia and had 2 blood cultures positive for Streptococcus pneumoniae. Since admission he was on Levaquin and continued at least 7 days of treatment intravenously. He improved symptomatically as well as clinically. His follow-up blood cultures were negative. Echocardiogram failed to show any vegetations or valvular problems. (3) Elevated lactic acid level Priority: Secondary Status: Resolved (4) DM (diabetes mellitus), type 2 Priority: Secondary Status: Chronic Comments: Patient chronically has diabetes. His sugars remained under fairly good control. Glycohemoglobin 7.0%. No change in his medications were made except for holding metformin for 2 days due to IV contrast use on CT scan 10/02/18 Qualifiers: Diabetes mellitus halfway insulin use: without halfway use Diabetes mellitus complication status: with neurologic complications Diabetes mellitus complication detail: with polyneuropathy Qualified Code(s): E11.42 - Type 2 diabetes mellitus with diabetic polyneuropathy (5) HTN (hypertension) Priority: Secondary Status: Chronic Qualifiers: Hypertension type: essential hypertension Qualified Code(s): I10 - [place] l (primary) hypertension (6) SORAYA (acute kidney injury) Priority: Secondary Status: Resolved Comments: Patient had acute kidney injury elevated creatinine on admission. By time of discharge his creatinine was normal. (7) Tachycardia Priority: Secondary Status: Acute Comments: During the hospital stay he did have episodes of tachycardia in the first few days of his admission. Monitor showed supraventricular tachycardia into the 120s to 130s temporarily. By time of discharge his underlying rhythm was normal sinus rhythm with occasional PAC and PVC. He had at least one run of 4 beat kailyn PVCs but no prolonged ventricular tachycardia. (8) COPD (chronic obstructive pulmonary disease) Priority: Secondary Status: Chronic Comments: Patient has chronic COPD oxygen dependent at home. Typically he is at 2 1/2-3 L per nasal cannula. During the hospital stay he temporarily had to be up to 4 or 5 L per nasal cannula at high flow. At time of discharge this was weaned downward and he was ambulatory in the hallways without dyspnea. Qualifiers: COPD type: COPD with acute lower respiratory infection Qualified Code(s): J44.0 - Chronic obstructive pulmonary disease with acute lower respiratory infection (9) Hypokalemia Priority: Secondary Status: Resolved Hospital course: Mr. Gillis is a 73 year old male who saw she dependent with COPD was admitted with right-sided chest pain and found to have bilateral pneumonia, right worse than the left. He was treated with Levaquin. Blood cultures were positive for Streptococcus pneumoniae. He also has tachycardia. See the diagnoses above. Patient will be discharged to home today in follow-up in the office. Discharge discussed with: patient Time spent discussing smoking cessation with patient: 3 to 10 minutes - Time Spent with Patient Total time spent providing and/or coordinating discharge services: Time spent: Less than 30 minutes - Discharge Medications Prescriptions: New Aspirin 81 mg PO DAILY tab.chew levoFLOXacin [Levaquin] 750 mg PO DAILY #6 tablet Metoprolol [Lopressor] 50 mg PO BID #60 tablet Continue OxyCODONE Immed Rel [Roxicodone 20 MG] 10 mg PO Q6H PRN PRN Reason: Pain metFORMIN [Glucophage] 1,000 mg PO BIDWM Gemfibrozil [Lopid] 600 mg PO BIDWM glipiZIDE [Glucotrol] 5 mg PO DAILY Albuterol Sulfate 2.5 mg IH Q4HR Ammonium Lactate 12 % .ROUTE BID Pregabalin [Lyrica] 100 mg PO TID Duloxetine HCl [Cymbalta] 60 mg PO DAILY Lisinopril [Zestril] 10 mg PO DAILY Discontinued Lisinopril [Zestril] 20 mg PO DAILY No Action Triamcinolone Acet 0.1% CRM 0.1 % .ROUTE DAILY Home Medications: Gemfibrozil [Lopid] 600 mg PO BIDWM 02/18/15 [History] glipiZIDE [Glucotrol] 5 mg PO DAILY 02/18/15 [History] metFORMIN [Glucophage] 1,000 mg PO BIDWM 02/18/15 [History] OxyCODONE Immed Rel [Roxicodone 20 MG] 10 mg PO Q6H PRN 01/28/16 [History] Albuterol Sulfate 2.5 mg IH Q4HR 08/27/16 [History] Ammonium Lactate 12 % .ROUTE BID 09/27/18 [History] Duloxetine HCl [Cymbalta] 60 mg PO DAILY 09/27/18 [History] Lisinopril [Zestril] 10 mg PO DAILY 09/27/18 [History] Pregabalin [Lyrica] 100 mg PO TID 09/27/18 [History] Triamcinolone Acet 0.1% CRM 0.1 % .ROUTE DAILY 09/27/18 [History] Aspirin 81 mg PO DAILY tab.chew 10/03/18 [Rx] Metoprolol [Lopressor] 50 mg PO BID #60 tablet 10/03/18 [Rx] levoFLOXacin [Levaquin] 750 mg PO DAILY #6 tablet 10/03/18 [Rx] Allergies/Adverse Reactions: Allergy/AdvReac Type Severity Reaction Status Date / Time No Known Allergies Allergy Verified 09/27/18 10:24 Date of admission: 09/27/18 23:58 Primary care physician: Chacha Rosenthal CNP Discharging clinician: Dez Salazar Anticipated date of discharge: 10/04/18 - Constitutional Vitals: Temp Pulse Resp BP Pulse Ox 98.9 F 90 18 144/78 97 10/03/18 19:00 10/03/18 19:00 10/03/18 19:53 10/03/18 19:00 10/03/18 19:53 General appearance: Present: A&O X 3, no acute distress, answers questions appropriately - Respiratory Additional comments: Diminished breath sounds posteriorly and localizing crackles in the right mid and lower lung field but subtle. Rare anterior right lung field crackles. No respiratory distress. Oxygen saturation in the low 90s at 3 L per nasal cannula - Cardiovascular Cardiovascular exam: Present: RRR, +S1, +S2 - Extremities Exam Extremities exam: Absent: pedal edema - Patient Status Disposition: Home, Self-Care Condition: Good Functional capacity at discharge: independent ambulation Overall status at discharge: patient is progressing back to baseline - Discharge Instructions Follow Up With: Dez Salazar MD [Partnered Physician] - 10/09/18 11:30 am - Diet and Activity Activity: wear oxygen at all times Diet: diabetic diet - VTE Reasons for not Prescribing Prophylaxis: Treatment not Indicated - Low risk for VTE
[2018-10-04] MEDS: Ipratropium/Albuterol Neb 3 ML IH SCH ×4 (00:54→10:58)
[2018-10-04] MEDS: *HR* OxyCODONE Immed Rel 5 MG TABLET PO PRN ×2 (04:28→11:38)
[2018-10-04] MEDS: *HR* Enoxaparin 40 MG/0.4 ML SYRINGE SQ SCH (04:29)
[2018-10-04 07:51] VITALS: BP 137/78
[2018-10-04] MEDS: Insulin LISPRO 300 UNITS/3 ML VIAL SQ SCH (07:59)
[2018-10-04] MEDS: Aspirin 81 MG TAB.CHEW PO SCH (07:59)
[2018-10-04] MEDS: Lisinopril 20 MG TABLET PO SCH (08:00)
[2018-10-04] MEDS: Nicotine 14 MG PATCH.TD24 TD SCH (08:01)
[2018-10-04] MEDS: *HR* GlipiZIDE 5 MG TABLET PO SCH (08:01)
[2018-10-04] MEDS: Pregabalin 50 MG CAPSULE PO SCH (08:01)
== END 2018-10-04 12:09 | disposition home or self-care (01) | DRG 194 ==
LOC: EMEROOGRE 10:08 → INPGRE 10:08
PROVIDERS: ADMIT Family Medicine; ATTEND Family Medicine